=== PATIENT | female | born 1975 | race Hispanic/Latino ===

== ENCOUNTER 2019-04-28 10:38 | Emergency (ER) | payer SELFPAY ==
[~2019-04-28] VITALS: Ht 152.4 cm; Wt 77.1 kg
[2019-04-28] MEDS ORDERED: CEPHALEXIN 500 MG CAP PO STA (10:53)
[2019-04-28] MEDS ORDERED: PREDNISONE 20 MG TAB PO ONE (11:00)
[2019-04-28] MEDS ORDERED: VALACYCLOVIR HCL 500 MG TAB PO STA (11:02)
== END 2019-04-28 11:29 | disposition home or self-care (01) ==
LOC: ER 10:38
DX: G51.0 Bell's palsy (principal)
CPT/HCPCS: 99283; J7512